=== PATIENT | female | born 1945 | race Caucasian/White ===

== ENCOUNTER → 2016-09-01 09:31 | Outpatient (CLI) | payer MEDICARE, OTHER ==
[2015-08-18 13:36] VITALS: BMI 35.1
[~2016-09-01 09:31] MED LIST: FLAGYL500 MG PO; PERCOCET 10/3251 TA1 PO; SYNTHROID112 MCG PO; VALIUM5 MG PO
== END | disposition home or self-care (01) ==
LOC: D.MRI 09:31
DX: R20.2 Paresthesia of skin (principal)

== ENCOUNTER → 2017-02-09 08:30 | Outpatient (CLI) | payer MEDICARE, OTHER ==
[2015-08-18 13:36] VITALS: BMI 35.1
[2017-02-09 08:54] LABS: BASOPHILS 1.6 % (0-2); EOSINOPHILS 4.4 % (0-7); HEMATOCRIT 46.5 % (36.0-48.0); HEMOGLOBIN 15.4 g/dL (12-16); IMMATURE GRANULOCYTES 0.3 % (0-5); LYMPHOCYTES 36.6 % (15-50); MCH 30.9 pg (26.0-34.0); MCHC 33.1 g/dL (31.0-37.0); MCV 93.4 fL (80.0-100.0); MEAN PLATELET VOLUME 9.9 fL (7.4-10.4); MONOCYTES 9.5 % (2-11); NEUTROPHILS 47.6 % (40-80); RBC 4.98 10x6/uL (4.00-5.40); RDW 13.3 % (11.5-14.5); WBC 6.2 10x3/uL (4.8-10.8)
[2017-02-09 09:06] LABS: PLATELET COUNT 273 10x3/uL (130-400)
[2017-02-09 09:08] LABS: ALBUMIN 3.9 g/dL (3.4-5.0); BILIRUBIN - DIRECT 0.06 mg/dL (0.00-0.30); BILIRUBIN - INDIRECT 0.26 mg/dL (0.00-1.00); BILIRUBIN - TOTAL 0.32 mg/dL (0.2-1.3); CHOL - HDL RATIO 5.6 ratio (2.3-4.1); LDL-HDL RATIO 3.8 ratio (1.5-3.5); PROTEIN - SERUM 7.7 g/dL (6.4-8.2)
== END | disposition home or self-care (01) ==
LOC: D.LAB 08:30 → D.US 09:00
PROVIDERS: Family Medicine
DX: K76.0 Fatty (change of) liver, not elsewhere classified (principal)

== ENCOUNTER → 2018-02-18 07:40 | Outpatient (CLI) | payer MEDICARE, OTHER ==
[2015-08-18 13:36] VITALS: BMI 35.1
== END | disposition home or self-care (01) ==
LOC: D.CT 07:40
DX: R42 Dizziness and giddiness (principal)

== ENCOUNTER → 2018-06-02 10:52 | Outpatient (CLI) | payer MEDICARE, OTHER ==
[2015-08-18 13:36] VITALS: BMI 35.1
== END | disposition home or self-care (01) ==
LOC: D.RAD 10:52
DX: K21.9 Gastro-esophageal reflux disease without esophagitis (principal); R13.10 Dysphagia, unspecified

== ENCOUNTER → 2018-08-27 07:06 | Outpatient (CLI) | payer MEDICARE, OTHER ==
[2015-08-18 13:36] VITALS: BMI 35.1
[2018-08-27 08:30] LABS: ALBUMIN 3.4 g/dL (3.4-5.0); BILIRUBIN - DIRECT 0.07 mg/dL (0.00-0.30); BILIRUBIN - INDIRECT 0.21 mg/dL (0.00-1.00); BILIRUBIN - TOTAL 0.28 mg/dL (0.2-1.3); PROTEIN - SERUM 7.2 g/dL (6.4-8.2)
== END | disposition home or self-care (01) ==
LOC: D.US 04-15 08:30 → D.LAB 04-15 09:45 → D.US 07-19 08:30
PROVIDERS: Internal Medicine Gastroenterology
DX: K76.0 Fatty (change of) liver, not elsewhere classified (principal)

== ENCOUNTER → 2019-02-25 08:51 | Outpatient (CLI) | payer MEDICARE, OTHER ==
[2015-08-18 13:36] VITALS: BMI 35.1
[2019-02-25 10:32] LABS: ALBUMIN 3.8 g/dL (3.4-5.0); BILIRUBIN - DIRECT 0.05 mg/dL (0.00-0.30); BILIRUBIN - INDIRECT 0.21 mg/dL (0.00-1.00); BILIRUBIN - TOTAL 0.26 mg/dL (0.2-1.3); PROTEIN - SERUM 7.2 g/dL (6.4-8.2)
== END | disposition home or self-care (01) ==
LOC: D.US 08:51
PROVIDERS: ATTEND Internal Medicine Gastroenterology
DX: K76.0 Fatty (change of) liver, not elsewhere classified (principal)

== ENCOUNTER → 2019-09-05 08:49 | Outpatient (CLI) | payer MEDICARE, OTHER ==
[2015-08-18 13:36] VITALS: BMI 35.1
[2019-09-05 09:34] LABS: ALBUMIN 3.8 g/dL (3.4-5.0); BILIRUBIN - DIRECT 0.03 mg/dL (0.00-0.30); BILIRUBIN - INDIRECT 0.2 mg/dL (0.00-1.00); BILIRUBIN - TOTAL 0.23 mg/dL (0.2-1.3); PROTEIN - SERUM 7.9 g/dL (6.4-8.2)
== END | disposition home or self-care (01) ==
LOC: D.LAB 08:45 → D.US 09:00
PROVIDERS: ATTEND Internal Medicine Gastroenterology
DX: K76.0 Fatty (change of) liver, not elsewhere classified (principal)

== ENCOUNTER 2019-09-14 07:04 | Outpatient (CLI) | payer MEDICARE, OTHER ==
[~2019-09-14] VITALS: Ht 157.5 cm; Wt 90.9 kg
[2019-09-14 07:49] LABS: APTT 32.2 SECONDS (22.8-39.4); INR 0.94 (0.85-1.17); PROTIME 12.6 SECONDS (11.6-15.0)
[2019-09-14 07:51] LABS: ANION GAP 11.8 mmol/L (8-16); CALCIUM 8.8 mg/dL (8.5-10.1); CARBON DIOXIDE 29.1 mmol/L (21.0-32.0); CREATININE - SERUM 0.9 mg/dL (0.6-1.3); POTASSIUM - SERUM 3.9 mmol/L (3.5-5.1)
[2019-09-14 08:05] LABS: BASOPHILS 0.9 % (0-2); HEMATOCRIT 44.3 % (36.0-48.0); IMMATURE GRANULOCYTES 0.3 % (0-5); LYMPHOCYTES 44.7 % (15-50); MCH 30.7 pg (26.0-34.0); MCHC 33.9 g/dL (31.0-37.0); MCV 90.8 fL (80.0-100.0); MEAN PLATELET VOLUME 9.8 fL (7.4-10.4); MONOCYTES 10.2 % (2-11); NEUTROPHILS 38.9 % (40-80); PLATELET COUNT 299 10x3/uL (130-400); RBC 4.88 10x6/uL (4.00-5.40); RDW 13.2 % (11.5-14.5); WBC 6.7 10x3/uL (4.8-10.8)
[2019-09-14] MEDS ORDERED: PERCOCET 10-321 EAC1 PO (08:08)
[2019-09-14] MEDS ORDERED: VISTARIL25 MG PO (08:09)
[2019-09-14 08:18] VITALS: Ht 157.5 cm; Wt 90.9 kg
--- NOTE | 2019-09-14 11:10 | NUR ---
1107 SEE POST PROCEDURE CHECKLIST FOR VITAL SIGN TRENDS. WATER SERVED. SPOUSE AT SIDE. CALL LIGHT AT SIDE. HOB AT 20 DEGREES, SUSPINE.
--- NOTE | 2019-09-14 11:24 | NUR ---
1124 FL DIET SERVED
--- NOTE | 2019-09-14 14:22 | NUR ---
1400 IV REMOVED AND INSTRUCTIONS GIVEN. SITE W/O SWELLING OR DRAINAGE. DENIES PAIN AT THE SITE.
== END 2019-09-14 14:23 | disposition home or self-care (01) ==
LOC: D.SP 07:04 → D.CT 10:00 → D.SP 14:23
PROVIDERS: Radiology Vascular & Interventional Radiology; ATTEND Internal Medicine Gastroenterology
DX: K76.0 Fatty (change of) liver, not elsewhere classified (principal); K74.60 Unspecified cirrhosis of liver

== ENCOUNTER → 2019-12-08 08:59 | Outpatient (CLI) | payer MEDICARE, OTHER ==
[2019-09-14 08:18] VITALS: BMI 36.6
[~2019-12-08 08:59] MED LIST changes: +PERCOCET 10-321 EAC1 PO; +VISTARIL25 MG PO
[2019-12-08 10:01] LABS: PROTIME 13.2 SECONDS (11.6-15.0)
[2019-12-08 10:09] LABS: % SATURATION 31 % (15-55); FERRITIN 224 ng/mL (3-244); GAMMA GT 24 U/L (5-85); IRON 77 ug/dl (35-150); TOTAL IRON BIND CAPACITY 243 ug/dl (260-445); UNSAT IRON BIND CAPACITY 166 ug/dl (150-375)
[2019-12-08 10:17] LABS: BASOPHILS 1.4 % (0-2); EOSINOPHILS 4.8 % (0-7); HEMATOCRIT 44.5 % (36.0-48.0); HEMOGLOBIN 14.7 g/dL (12-16); IMMATURE GRANULOCYTES 0.4 % (0-5); LYMPHOCYTES 31.8 % (15-50); MCH 30.2 pg (26.0-34.0); MCV 91.4 fL (80.0-100.0); MEAN PLATELET VOLUME 9.8 fL (7.4-10.4); MONOCYTES 10.2 % (2-11); NEUTROPHILS 51.4 % (40-80); PLATELET COUNT 292 10x3/uL (130-400); RBC 4.87 10x6/uL (4.00-5.40); RDW 13.6 % (11.5-14.5); WBC 7.1 10x3/uL (4.8-10.8)
[2019-12-09 07:10] LABS: ALPHA FETOPROTEIN -(TUMOR MRK) 4.9 ng/mL (0.0-8.3); IMMUNOGLOBULIN A 253 mg/dL (64-422); IMMUNOGLOBULIN G 1010 mg/dL (586-1602); IMMUNOGLOBULIN M 48 mg/dL (26-217)
[2019-12-09 10:08] LABS: ANA REFLEX - DIRECT Negative (Negative)
[2019-12-09 12:08] LABS: HEPATITIS C ANTIBODY 0.2 S/CO RAT (0.0-0.9)
[2019-12-11 03:06] LABS: IMMUNOGLOBULIN E 111 IU/mL (6-495)
[2019-12-12 14:08] LABS: MITOCHONDRIAL ANTIBODY <20.0 Units (0.0-20.0); SMOOTH MUSCLE ABS (ACTIN) 10 Units (0-19)
== END | disposition home or self-care (01) ==
LOC: D.LAB 08:59
PROVIDERS: ATTEND Internal Medicine Gastroenterology
DX: K75.81 Nonalcoholic steatohepatitis (NASH) (principal); K21.9 Gastro-esophageal reflux disease without esophagitis

== ENCOUNTER → 2020-03-05 09:08 | Outpatient (CLI) | payer MEDICARE, OTHER ==
[2019-09-14 08:18] VITALS: BMI 36.6
[2020-03-05 09:48] LABS: ALBUMIN 3.6 g/dL (3.4-5.0); BILIRUBIN - DIRECT 0.12 mg/dL (0.00-0.30); BILIRUBIN - INDIRECT 0.19 mg/dL (0.00-1.00); BILIRUBIN - TOTAL 0.31 mg/dL (0.2-1.3); PROTEIN - SERUM 7.3 g/dL (6.4-8.2)
== END | disposition home or self-care (01) ==
LOC: D.US 09:08
PROVIDERS: ATTEND Internal Medicine Gastroenterology
DX: K76.0 Fatty (change of) liver, not elsewhere classified (principal)

== ENCOUNTER → 2021-01-10 14:37 | Outpatient (CLI) | payer MEDICARE, OTHER ==
[2019-09-14 08:18] VITALS: BMI 36.6
== END | disposition home or self-care (01) ==
LOC: D.MRI 14:37
PROVIDERS: ATTEND Family Medicine
DX: M25.511 Pain in right shoulder (principal)